=== PATIENT | male | born 1965 | race Caucasian/White ===

== ENCOUNTER → 2020-02-27 | Outpatient (CLI) | payer BC ==
--- NOTE | 2020-02-27 09:22 | Diagnostic Imaging Report ---
Exam: Left wrist 3 views History: Wrist pain Comparison: None. Findings: Remote scaphoid waist fracture with nonunion and sclerotic change of the proximal pole. Volar rotation of the distal scaphoid causing a normal articulation with the radial styloid and arthrosis. Proximal migration of the capitate with narrowing of the capital lunate interval Impression: Scaphoid nonunion advanced collapse arthropathy Signed by: Dr. Javier Muhammad M.D. on 02/27/2020 9:11 AM
== END ==
LOC: RAD 08:28
PROVIDERS: ATTEND Internal Medicine
DX: M25.532 Pain in left wrist (principal); M12.832 Other specific arthropathies, not elsewhere classified, left wrist